=== PATIENT | female | born 1990 ===

== ENCOUNTER 2019-12-07 19:39 | Inpatient (IN) | payer BC, OTHER ==
[2019-12-07] MEDS ORDERED: hydrALAZINE 20 MG/ML VIAL SLOW IVP PRN (20:40)
[2019-12-07] MEDS ORDERED: Docusate 100 MG CAP PO PRN (20:40)
[2019-12-07] MEDS ORDERED: Acetaminophen 500 MG TAB PO PRN (20:40)
[2019-12-07] MEDS ORDERED: NS / Oxytocin 40 units/1000ml 1,000 ML IV PRN (20:40)
[2019-12-07] MEDS ORDERED: Butorphanol Tartrate 1 MG/ML VIAL SLOW IVP PRN (20:40)
[2019-12-07] MEDS ORDERED: Misoprostol 200 MCG TAB PR PRN (20:40)
[2019-12-07] MEDS ORDERED: HYDROcodone/Acetaminophen 5/325 mg Tablet PO PRN ×2 (20:40)
[2019-12-07] MEDS ORDERED: Promethazine HCl 25 MG/ML VIAL IM PRN (20:40)
[2019-12-07] MEDS ORDERED: Ondansetron PF 4 MG/2 ML Vial IVP PRN (20:40)
[2019-12-07] MEDS ORDERED: Ibuprofen 800 MG TAB PO PRN (20:40)
[2019-12-07] MEDS ORDERED: Carboprost 250 MCG/ML AMP IM PRN (20:40)
[2019-12-07] MEDS ORDERED: Diphenoxylate HCl/Atropine Tablet PO PRN ×2 (20:40)
[2019-12-07] MEDS ORDERED: Lidocaine 1% (PF) 30 ML VIAL SC PRN (20:40)
[2019-12-07] MEDS ORDERED: NS w/ Oxytocin 10 units 500 ML IV SCH ×2 (20:45)
--- NOTE | 2019-12-07 21:01 | PDOC.LDHP ---
Labor and Delivery H&P Chief complaint: scheduled induction HPI: 29 y/o at 39 and 5/7 was seen in clinic this morning, and noted to have 2nd elevated BP, consistent with new dx of GHTN at term. Ultrasound today showed 6/8 BPP (-2 for breathing). She now presents to L&D, approximately 10 hours after being instructed to go to L&D from clinic. Of note, she now also presents with an elevated temp 100.8 deg F, and is undergoing COVID testing. Patient has missed last week's 38 week appointment without explanation. She had late entry into care at my office at 31 weeks, and has skipped doing all ordered bloodwork, as well as 1-hour GCT. No explanation was provided as to why. Today, patient admits to occasional tobacco use. No drug use or alcohol use is reported. Current gestational age (weeks): 39 Due date: 12/09/19 Grav: 2 Para: 1 Current complications: gestational hypertension Abnormal US findings: Yes (6/8 BPP) Current medications: pre-hetal vitamins Previous surgical history: none Social history: tobacco use - Physical Exam Vital signs reviewed and normal: yes General: NAD, resting Heart: RRR Lungs: CTAB Abdomen: gravid FHT: category 1 - Assessment L&D Assessment: medically indicated induction - Plan Plan: admit to L&D, cervical ripening
[2019-12-07 21:30] LABS: Hemoglobin 10.5 g/dL (12.0-16.0); Mean Corpuscular HGB CONC 33.1 g/dL (32.0-36.0); Mean Corpuscular Hemoglobin 28.4 pg (27.0-31.0); Mean Corpuscular Volume 85.8 fL (78.0-98.0); Mean Platelet Volume 12.1 fL (7.4-10.4); Platelet Count 171 thou/uL (130-400); RBC Distribution Width 13.8 % (11.5-14.5); Red Blood Cell (RBC) Count 3.68 mill/uL (4.20-5.40); White Blood Cell (WBC) Count 12.6 thou/uL (4.8-10.8)
[2019-12-07 21:31] LABS: SARS-CoV-2 NAA Rapid Test Not Detected (NotDetected)
[2019-12-07 21:54] LABS: ALT (SGPT) 12 U/L (8-55); AST (SGOT) 22 U/L (5-34); Albumin 3.4 g/dL (3.5-5.0); Alkaline Phosphatase 178 U/L (40-110); Anion Gap 13 mmol/L (10-20); BUN (Urea Nitrogen) 9 mg/dL (7.0-18.7); Bilirubin, Total 0.6 mg/dL (0.2-1.2); Calc. Creatinine Clearance 0 mL/min (70-130); Calcium 8.5 mg/dL (7.8-10.44); Carbon Dioxide 22 mmol/L (22-29); Chloride 106 mmol/L (98-107); Estimated GFR-MDRD Greater than 90; Globulin 3.4 g/dL (2.4-3.5); Glucose 69 mg/dL (70-105); Protein, Total 6.8 g/dL (6.0-8.3); Sodium 137 mmol/L (136-145)
[2019-12-07 22:27] LABS: Syphilis Antibody Nonreactive (Nonreactive); Syphilis Antibody Index 0.04 S/CO (<1.00 Non-Reactive)
[2019-12-07 23:07] VITALS: BMI 26.4
[2019-12-08 01:03] LABS: HIV (1/2) Antibody/Antigen Non-Reactive (NonReactive); HIV 1/2 INDEX 0.43 S/CO (<1.00); Hep B Surf Ag Non-Reactive S/CO (NonReactive); Hep C IgG Ab Non-Reactive (NonReactive); Hep C Index 0.17 S/CO (0-0.79)
[2019-12-08] MEDS: Lactated Ringer's 1,000 ML IV SCH ×3 (07:39→19:37)
[2019-12-08] MEDS ORDERED: Fentanyl 4 mcg/Bup 0.1% Cadd 100 ML ONE (08:36)
[2019-12-08 08:50] LABS: Amphetamine Detected (NotDetected); Barbiturates Screen Not Detected (NotDetected); Benzodiazepine Screen Not Detected (NotDetected); Cocaine Metabolite Screen Not Detected (NotDetected); Medtox Control Line Valid? VALID (VALID); Medtox Reader # READER 4; Methadone Not Detected (NotDetected); Methamphetamine Not Detected (NotDetected); Opiate Screen Not Detected (NotDetected); Oxycodone Screen Not Detected (NotDetected); Phencyclidine (PCP) Not Detected (NotDetected); THC/Cannabinoid Screen Detected (NotDetected); Tricyclic Screen Not Detected (NotDetected)
[2019-12-08 13:15] LABS: SARS-CoV-2 MS2 Positive; SARS-CoV-2 N Gene Negative; SARS-CoV-2 S Gene Negative; SARS-CoV-2 by NAA Not Detected (NotDetected); SARS-CoV-2 orf1ab Negative
[2019-12-08] MEDS ORDERED: Fentanyl 100 MCG/2 ML VIAL ONE (13:35)
[2019-12-08] MEDS ORDERED: Ketamine 50 MG/ML (10ML VIAL) ONE ×2 (13:39→13:50)
[2019-12-08] MEDS ORDERED: PHENYLEPHRINE-NS 100 MCG/ML 10 ML SYRINGE ONE (13:40)
[2019-12-08] MEDS ORDERED: Oxytocin 10 UNITS/ML VIAL ONE (13:40)
[2019-12-08] MEDS ORDERED: Midazolam HCl 2 mg/2 ml Vial ONE (13:52)
[2019-12-08] MEDS ORDERED: Ondansetron PF 4 MG/2 ML Vial ONE ×2 (13:59→14:00)
[2019-12-08] MEDS ORDERED: MORPHINE 5 MG/10 ML PF VIAL ONE (14:08)
[2019-12-08] MEDS ORDERED: EPHEDRINE 25 MG/5 ML SYRINGE SLOW IVP PRN ×2 (14:15→14:17)
[2019-12-08] MEDS ORDERED: Promethazine HCl 25 MG/ML VIAL IM PRN ×4 (14:15→18:45)
[2019-12-08] MEDS ORDERED: Naloxone HCl 0.4 mg/ml Vial IV PRN (14:15)
[2019-12-08] MEDS ORDERED: Ondansetron HCl/PF 4 MG/2 ML Vial IVP PRN (14:15)
[2019-12-08] MEDS ORDERED: Promethazine HCl 25 MG SUPP PR PRN (14:15)
[2019-12-08] MEDS ORDERED: HYDROmorphone 2 MG/ML VIAL SLOW IVP PRN (14:15)
[2019-12-08] MEDS ORDERED: Communication Order-Pharmacy FS SCH ×3 (14:15→14:30)
[2019-12-08] MEDS ORDERED: Lactated Ringer's 500 ML IV PRN ×2 (14:15→14:17)
[2019-12-08] MEDS ORDERED: L&D-Morphine 4 MG/ML VIAL SLOW IVP PRN (14:15)
[2019-12-08] MEDS ORDERED: Ondansetron PF 4 MG/2 ML Vial IVP PRN ×4 (14:15→18:45)
[2019-12-08] MEDS ORDERED: Ketorolac Tromethamine 30 MG/ML VIAL IVP PRN (14:15)
[2019-12-08] MEDS ORDERED: diphenhydrAMINE 50 MG/ML VIAL IVP PRN ×3 (14:15→14:17)
[2019-12-08] MEDS ORDERED: Meperidine HCl/PF 25 MG/ML VIAL SLOW IVP PRN (14:15)
[2019-12-08] MEDS ORDERED: Acetaminophen 325 MG TAB PO PRN ×2 (14:15→14:17)
[2019-12-08] MEDS ORDERED: Naloxone HCl 0.4 mg/ml Vial IVP PRN ×6 (14:15→14:17)
[2019-12-08] MEDS ORDERED: Fentanyl 4 mcg/Bupivacaine 0.1% Cassette 100 ML EPIDURAL SCH (14:30)
[2019-12-08] MEDS ORDERED: Meperidine HCl/PF 25 MG/ML VIAL ONE (15:53)
[2019-12-08] MEDS ORDERED: Morphine 4 MG/ML VIAL ONE (16:12)
[2019-12-08] MEDS ORDERED: Morphine 4 MG/ML VIAL SLOW IVP PRN (16:24)
[2019-12-08] MEDS ORDERED: Ketorolac Tromethamine 30 MG/ML VIAL ONE (16:39)
[2019-12-08] MEDS: Ketorolac Tromethamine 30 MG/ML VIAL IVP SCH ×2 (16:40→20:47)
[2019-12-08] MEDS ORDERED: Bisacodyl 10 MG SUPP PR PRN (18:45)
[2019-12-08] MEDS ORDERED: Varicella virus, LIVE 0.5 ML VIAL SC ONE (18:45)
[2019-12-08] MEDS ORDERED: NS / Oxytocin 40 units/1000ml 1,000 ML IV SCH (18:45)
[2019-12-08] MEDS ORDERED: Misoprostol 200 MCG TAB PR PRN (18:45)
[2019-12-08] MEDS ORDERED: hydrALAZINE 20 MG/ML VIAL SLOW IVP PRN (18:45)
[2019-12-08] MEDS ORDERED: Measles/Mumps/Rubella 10 MCG/0.5 ML VIAL SC ONE (18:45)
[2019-12-08] MEDS ORDERED: Adacel (T-DAP) 0.5 ML SYRINGE IM ONE (18:45)
[2019-12-08] MEDS ORDERED: Lanolin Ointment 7 GM TUBE TOP PRN (18:45)
[2019-12-08] MEDS ORDERED: diphenhydrAMINE 25 MG CAP PO PRN (18:45)
[2019-12-08] MEDS ORDERED: Morphine 2 MG/ML VIAL SLOW IVP PRN (18:57)
[2019-12-08] MEDS: Ibuprofen 800 MG TAB PO SCH (22:53)
[2019-12-08] MEDS: Docusate Calcium (SURFAK) 240 MG CAP PO SCH (22:53)
[2019-12-09] MEDS ORDERED: HYDROcodone/Acetaminophen 5/325 mg Tablet PO PRN (02:15)
[2019-12-09] MEDS ORDERED: Zolpidem Tartrate 5 MG TAB PO PRN (02:15)
[2019-12-09] MEDS: Ibuprofen 800 MG TAB PO SCH ×3 (05:01→21:57)
[2019-12-09] MEDS: HYDROcodone/Acetaminophen 5/325 mg Tablet PO PRN ×4 (05:03→20:56)
[2019-12-09 06:16] LABS: Hemoglobin 8.7 g/dL (12.0-16.0); Mean Corpuscular HGB CONC 32.2 g/dL (32.0-36.0); Mean Corpuscular Hemoglobin 27.6 pg (27.0-31.0); Mean Corpuscular Volume 85.7 fL (78.0-98.0); Mean Platelet Volume 11.8 fL (7.4-10.4); Platelet Count 159 thou/uL (130-400); RBC Distribution Width 13.8 % (11.5-14.5); Red Blood Cell (RBC) Count 3.17 mill/uL (4.20-5.40); White Blood Cell (WBC) Count 11.7 thou/uL (4.8-10.8)
[2019-12-09] MEDS: Prenatal Vitamin 1 TAB PO SCH (08:28)
[2019-12-09] MEDS: Docusate Calcium (SURFAK) 240 MG CAP PO SCH ×2 (08:28→20:56)
[2019-12-09] MEDS: Simethicone Chewable 80 MG TAB PO PRN ×2 (09:08→13:27)
--- NOTE | 2019-12-09 18:56 | PDOC.PP ---
Post Progress Note Post Day #: 1 PO intake tolerated: yes Flatus: yes Ambulation: yes Vital Signs (12 hours) Temp Pulse Resp BP Pulse Ox 12/09/19 16:55 98.5 F 78 18 137/73 12/09/19 11:32 99.7 F H 95 20 124/81 12/09/19 08:21 96 12/09/19 07:59 98.4 F 80 20 108/64 96 Weight Weight 135 lb - Physical Examination General: NAD Cardiovascular: no m/r/g, RRR Respiratory: clear to auscultation bilaterally, non-labored breathing Abdominal: + bowel sounds, lochia, no distention, appropriately TTP Extremities: negative homans (B) Skin: CS incision dry & intact, no rash Neurological: no gross focal deficits Psychiatric: A&Ox3, normal affect Result Diagrams: 12/09/19 05:58 12/07/19 21:18 Additional Labs: Post Labs Blood Type A NEGATIVE 12/07/19 21:39 Hep Bs Antigen Non-Reactive S/CO (NonReactive) 12/07/19 21:18 Rubella IgG Antibody Less than 0.90 index (Immune >0.99) L 12/07/19 21:18
--- NOTE | 2019-12-09 19:10 | OP ---
DATE OF PROCEDURE: 12/08/2019 TIME OF SERVICE: 1351 hours central daylight savings time. PREOPERATIVE DIAGNOSIS: Intrauterine at 39 weeks and 6 days with a new diagnosis in clinic of gestational hypertension and 6/8 biophysical profile, brought in for induction of labor, non-reassuring heart tones, borderline oligohydramnios noted in clinic. POSTOPERATIVE DIAGNOSIS: Intrauterine at 39 weeks and 6 days with a new diagnosis in clinic of gestational hypertension and 6/8 biophysical profile, brought in for induction of labor, non-reassuring heart tones, borderline oligohydramnios noted in clinic. PROCEDURE: Primary low transverse section using Pfannenstiel skin incision. FINDINGS: Viable female infant weighing 2860 g, 6 pounds 5 ounces; Apgars of 7 and 9. ESTIMATED BLOOD LOSS: QUANTITATIVE BLOOD LOSS: 380 mL. COMPLICATIONS: None. DETAILS OF THE PROCEDURE: After obtaining consent, the patient was taken back to the operating room where her regional anesthesia was found to be adequate. The patient was placed in the dorsal supine position with leftward tilt. The skin was tested for adequate anesthesia and a scalpel was then used to make a Pfannenstiel incision which was carried down to the underlying rectus fascia. The fascia was incised in the midline and the fascial incision extended in both lateral directions. 2 Kristofer clamps were placed at the superior aspect of the fascia and the rectus muscles were dissected away. Similarly, 2 Kristofer clamps were placed at the inferior aspect of the incision and rectus muscles dissected away. The rectus muscles were then in the midline and the peritoneum identified and entered bluntly with the hemostat. The peritoneal incision was then extended superiorly and inferiorly. A bladder blade was then placed within the peritoneal cavity and a bladder flap was made with Metzenbaum scissors and pickups with teeth. The bladder blade was replaced. A clean scalpel was used to make a uterine incision. The baby was then delivered with gentle fundal pressure without difficulty. The baby's mouth and nose were bulb suctioned and the cord clamped and cut. The baby was then handed to waiting attendants. Cord blood and cord gases were obtained. The placenta was manually extracted. The uterus exteriorized, cleared of all clots and debris, and repaired with #1 chromic suture in a running, locked fashion. Hemostasis at the uterine wall was excellent. The bladder flap was repaired with 2-0 Monocryl in a running fashion. The tubes and ovaries were inspected and appeared normal. The posterior cul-de-sac was blotted dry and the uterus was replaced within the abdomen. Again, the uterus was firm, and hemostasis was excellent at the uterine repair. Peritoneum was closed with 2-0 chromic suture in a running fashion. Fascia was reapproximated with 0 Vicryl, using 2 running sutures tied in the midline. The subcutaneous tissue was irrigated. Hemostasis was assured and the skin closed with 3-0 Monocryl and Dermabond adhesive. The patient was then transferred to the ambulatory bed and taken to recovery in stable condition. Job ID: [id number]
[2019-12-10 05:21] VITALS: TEMP 98.5
[2019-12-10] MEDS: Ibuprofen 800 MG TAB PO SCH (06:13)
[2019-12-10 07:58] VITALS: BP 110/65
[2019-12-10] MEDS: Prenatal Vitamin 1 TAB PO SCH (08:28)
[2019-12-10] MEDS: Docusate Calcium (SURFAK) 240 MG CAP PO SCH (08:28)
[2019-12-10] MEDS: HYDROcodone/Acetaminophen 5/325 mg Tablet PO PRN ×2 (08:30→12:31)
== END 2019-12-10 13:50 | disposition home or self-care (01) | DRG 787 ==
LOC: L&D 19:39 → 3SE 12-08 17:35
PROVIDERS: ADMIT Obstetrics & Gynecology; ATTEND Obstetrics & Gynecology
PROC: 10D00Z1 Extraction of Products of Conception, Low, Open Approach (ICD-10-PCS; principal; 2019-12-08)
DX: O13.4 Gestational [pregnancy-induced] hypertension without significant proteinuria, complicating childbirth (principal); O41.03X0 Oligohydramnios, third trimester, not applicable or unspecified; O76 Abnormality in fetal heart rate and rhythm complicating labor and delivery; Z3A.39 39 weeks gestation of pregnancy; Z37.0 Single live birth; Z11.59 Encounter for screening for other viral diseases
CPT/HCPCS: 36415; 80053; 80306; 85027; 85461; 86762; 86780; 86803; 86850; 86900; 86901; 87340; 87389; 87635; 90384; 90707; 90715; 96372; J0690; J1885; J2175; J2250; J2270; J2274; J2405; J2590; J3010; U0002; U0003